=== PATIENT | female | born 1995 | race Caucasian/White ===

== ENCOUNTER 2019-02-01 14:23 | Emergency (ER) | payer MEDICAID ==
[~2019-02-01] VITALS: Ht 170.2 cm; Wt 111.6 kg
[2019-02-01 15:00] VITALS: BP 117/63
--- NOTE | 2019-02-01 15:04 | NUR ---
VSS; PT AMB TO LOBBY
--- NOTE | 2019-02-01 17:35 | NUR ---
TOLD BY ADMITTING THAT PT LWBS AT THIS TIME
== END 2019-02-01 17:35 | disposition left against medical advice (07) ==
LOC: MED 14:23
DX: M54.5 Low back pain (principal); Z53.21 Procedure and treatment not carried out due to patient leaving prior to being seen by health care provider
CPT/HCPCS: 81002; 81025

== ENCOUNTER 2019-08-26 18:06 | Emergency (ER) | payer MEDICAID ==
[~2019-08-26] VITALS: Ht 170.2 cm; Wt 112.2 kg
[2019-08-26 18:16] VITALS: BP 124/80
[2019-08-26] MEDS ORDERED: KETOROLAC 30 MG/ML VIAL IM ONE (20:10)
[2019-08-26 20:50] VITALS: BP 122/64
== END 2019-08-26 20:50 | disposition home or self-care (01) ==
LOC: MED 18:06
DX: S46.911A Strain of unspecified muscle, fascia and tendon at shoulder and upper arm level, right arm, initial encounter (principal); S46.912A Strain of unspecified muscle, fascia and tendon at shoulder and upper arm level, left arm, initial encounter; X58.XXXA Exposure to other specified factors, initial encounter; Y93.89 Activity, other specified; Y92.89 Other specified places as the place of occurrence of the external cause; Y99.8 Other external cause status
CPT/HCPCS: 81025; 96372; 99283; J1885

== ENCOUNTER 2019-10-06 18:25 | Emergency (ER) | payer MEDICAID ==
[~2019-10-06] VITALS: Ht 170.2 cm; Wt 113.4 kg
[2019-10-06 18:31] VITALS: BP 153/104
--- NOTE | 2019-10-06 18:36 | NUR ---
PT TRIAGED, SENT BACK TO LOBBY AWAITING FOR BED
--- NOTE | 2019-10-06 18:40 | NUR ---
PT AMBULATED TO BED
--- NOTE | 2019-10-06 18:44 | NUR ---
24/F C/O SORE THROAT, X2 DAYS. DENIES COUGH, N/V/D. TEMP 100.5, HR 125. DENIES MED HX, RX OR OTC. PATIENT STATES PAIN OF 10/10 AT THIS TIME. PATIENT POSITIONED FOR COMFORT; HOB ELEVATED; BEDRAILS UP X1; BED DOWN. ER MD MADE AWARE OF PT STATUS.
--- NOTE | 2019-10-06 18:49 | NUR ---
FLU & STREP SPECIMENS SENT TO LAB.
[2019-10-06] MEDS ORDERED: ACETAMINOPHEN EXTRA STRENGTH 500 MG TAB PO ONE (18:50)
[2019-10-06] MEDS ORDERED: IBUPROFEN 600 MG TAB PO ONE (18:50)
[2019-10-06] MEDS ORDERED: PENICILLIN G BENZATHINE L-A 1.2 MU/2 ML SYR IM ONE (19:10)
[2019-10-06] MEDS ORDERED: KETOROLAC 30 MG/ML VIAL IM ONE (19:10)
--- NOTE | 2019-10-06 19:21 | NUR ---
Pt report given to MOO ANDERSON. Transfer of care at this time.
--- NOTE | 2019-10-06 20:02 | NUR ---
Patient discharged with v/s stable. Written and verbal after care instructions given and explained. Patient alert, oriented and verbalized understanding of instructions. Ambulatory with steady gait. All questions addressed prior to discharge. ID band removed. Patient advised to follow up with PMD. Rx of KEFLEX, ACETAMINOPHEN, AND PRENATALS given. Patient educated on indication of medication including possible reaction and side effects. Opportunity to ask questions provided and answered.
[2019-10-06 20:03] VITALS: BP 138/98
== END 2019-10-06 20:02 | disposition home or self-care (01) ==
LOC: MED 18:25
DX: O23.40 Unspecified infection of urinary tract in pregnancy, unspecified trimester (principal); O99.513 Diseases of the respiratory system complicating pregnancy, third trimester; Z34.02 Encounter for supervision of normal first pregnancy, second trimester; J02.9 Acute pharyngitis, unspecified
CPT/HCPCS: 81002; 81025; 87081; 87804; 96372; 99283; J0561; J1885

== ENCOUNTER 2019-10-10 09:25 | Emergency (ER) | payer MEDICAID ==
[~2019-10-10] VITALS: Ht 170.2 cm; Wt 113.0 kg
[2019-10-10 09:31] VITALS: BP 124/65
--- NOTE | 2019-10-10 09:33 | NUR ---
KRUNAL GLEZ. SENT TO LOB, AWAITING BED IN ED. VSS.
--- NOTE | 2019-10-10 10:10 | NUR ---
PT TAKEN TO BED 12.
--- NOTE | 2019-10-10 10:22 | NUR ---
C/O VAGINAL SPOTTING NOTED WHEN WIPING AND SMALL AMOUNT OF HOME IN TOILET BOWL X 2 DAYS. STATES 5/10 INTERMITTENT B/L PELVIC PAIN. SEEN IN ED 4 DAYS AGO, POS HCG. WAS NOT TOLD HOW MANY WKS . LMP "AROUND 2 MONTHS AGO". HX- NONE
--- NOTE | 2019-10-10 10:35 | NUR ---
URINE ALREADY TAKEN BY LAB. HCG BLOOD WILL BE DONE.
[2019-10-10 10:40] LABS: APPEARANCE,URINE CLEAR (CLEAR); BILIRUBIN,URINE NEGATIVE (NEGATIVE); BLOOD, URINE TRACE-I (NEGATIVE); COLOR,URINE YELLOW (YELLOW); LEUKOCYTE ESTERASE ,URINE TRACE (NEGATIVE); NITRITE, URINE NEGATIVE (NEGATIVE); UGLUCOSE NEGATIVE (NEGATIVE)
[2019-10-10 10:46] LABS: BASOPHILS # (AUTO) 0.1 K/uL (0.00-0.22); EOSINOPHILS # (AUTO) 0.1 K/uL (0-0.4); HEMOGLOBIN 12.6 g/dL (12.0-16.0); LYMPHOCYTES # (AUTO) 1.9 K/uL (2.5-16.5); LYMPHOCYTES % (AUTO) 33.3 % (20.5-51.1); MEAN CORPUSCULAR HEMOGLOBIN 27 pg (27-31); MEAN CORPUSCULAR HGB CONC 32 g/dL (33-37); MEAN CORPUSCULAR VOLUME 83.3 fL (80-94); MONOCYTES # (AUTO) 0.3 K/uL (0.8-1.0); MONOCYTES % (AUTO) 5.7 % (1.7-9.3); NEUTROPHILS # (AUTO) 3.4 K/uL (1.8-7.7); PLATELET COUNT (AUTO) 328 K/uL (140-450); RED BLOOD CELL COUNT(AUTO) 4.68 MIL/uL (4.20-5.40); WHITE BLOOD COUNT (AUTO) 5.8 K/uL (4.8-10.8)
--- NOTE | 2019-10-10 11:15 | NUR ---
US TECH AT BEDSIDE
[2019-10-10 11:26] LABS: RBC,URINE 0-5 /HPF (0-5); WBC,URINE 0-5 /HPF (0-5)
[2019-10-10 13:04] VITALS: BP 120/68
--- NOTE | 2019-10-10 13:04 | NUR ---
Patient discharged with v/s stable. Written and verbal after care instructions given and explained. Patient verbalized understanding. Ambulatory with steady gait. All questions addressed prior to discharge. Advised to follow up with obgyn in 2-3 days.
== END 2019-10-10 13:04 | disposition home or self-care (01) ==
LOC: MED 09:25
DX: O20.9 Hemorrhage in early pregnancy, unspecified (principal); Z3A.01 Less than 8 weeks gestation of pregnancy
CPT/HCPCS: 36415; 76801; 81001; 84702; 85025; 86900; 86901; 99284; Q0092

== ENCOUNTER 2019-11-14 22:25 | Emergency (ER) | payer MEDICAID ==
[~2019-11-14] VITALS: Ht 170.2 cm; Wt 112.7 kg
[2019-11-14 22:55] VITALS: BP 122/76
--- NOTE | 2019-11-14 22:58 | NUR ---
to lobby a/w bed ambulatory
--- NOTE | 2019-11-14 23:57 | NUR ---
PT AMBULATED TO BED 12
--- NOTE | 2019-11-15 00:21 | NUR ---
BIB SELF C/O VAGINAL BLEEDING X 5 HOURS AGO. PT WAS RUNNING ERRANDS AND REALIZED SHE WAS BLEEDING THROUGH HER JEANS. SHE REPORTS TO BEEN HAVE SPOTTING/BLEEDING FOR 3 HOURS. PT IS NOT CURRENTLY BLEEDING. NO PAIN REPORTED. NO BURNING DURING URINATION. NO PMH NKA
[2019-11-15 00:26] LABS: APPEARANCE,URINE CLEAR (CLEAR); BILIRUBIN,URINE NEGATIVE (NEGATIVE); BLOOD, URINE 2+ (NEGATIVE); COLOR,URINE YELLOW (YELLOW); LEUKOCYTE ESTERASE ,URINE NEGATIVE (NEGATIVE); NITRITE, URINE NEGATIVE (NEGATIVE); UGLUCOSE NEGATIVE (NEGATIVE)
[2019-11-15 00:40] LABS: WBC,URINE 0-5 /HPF (0-5)
[2019-11-15 01:09] VITALS: BP 126/75
[2019-11-15 01:32] LABS: BASOPHILS # (AUTO) 0.1 K/uL (0.00-0.22); BASOPHILS % (AUTO) 1.1 % (0.0-2.0); EOSINOPHILS # (AUTO) 0.2 K/uL (0-0.4); EOSINOPHILS % (AUTO) 2.4 % (0.0-4.0); HEMATOCRIT 37.7 % (36-48); HEMOGLOBIN 12.3 g/dL (12.0-16.0); LYMPHOCYTES # (AUTO) 2.5 K/uL (2.5-16.5); LYMPHOCYTES % (AUTO) 34.8 % (20.5-51.1); MEAN CORPUSCULAR HEMOGLOBIN 27 pg (27-31); MEAN CORPUSCULAR HGB CONC 33 g/dL (33-37); MEAN CORPUSCULAR VOLUME 82.6 fL (80-94); MONOCYTES # (AUTO) 0.5 K/uL (0.8-1.0); MONOCYTES % (AUTO) 7.1 % (1.7-9.3); NEUTROPHILS % (AUTO) 54.6 % (42.2-75.2); PLATELET COUNT (AUTO) 287 K/uL (140-450); RED BLOOD CELL COUNT(AUTO) 4.57 MIL/uL (4.20-5.40); RED CELL DISTRIBUTION WIDTH 14.3 % (11.6-13.7); WHITE BLOOD COUNT (AUTO) 7.2 K/uL (4.8-10.8)
[2019-11-15 01:46] LABS: ANION GAP 13.1 (8-16); CARBON DIOXIDE 26.7 mmol/L (21-32); CREATININE 0.5 mg/dL (0.6-1.3); POTASSIUM 3.8 mmol/L (3.5-5.1)
--- NOTE | 2019-11-15 03:04 | NUR ---
Patient discharged with v/s stable. Written and verbal after care instructions given and explained. Patient verbalized understanding. Ambulatory with steady gait. All questions addressed prior to discharge. Advised to follow up with PMD.
== END 2019-11-15 03:04 | disposition home or self-care (01) ==
LOC: MED 22:25
DX: O20.8 Other hemorrhage in early pregnancy (principal); Z3A.10 10 weeks gestation of pregnancy
CPT/HCPCS: 36415; 76801; 80048; 81001; 81025; 84702; 85025; 86900; 86901; 99284; Q0092

== ENCOUNTER 2023-12-06 14:35 | Emergency (ER) | payer MEDICAID ==
[~2023-12-06] VITALS: Ht 170.2 cm; Wt 121.1 kg
[2023-12-06 14:46] VITALS: BP 134/79; PULSE 129; RESP 20; TEMP 101.3; O2SAT 98
[2023-12-06] MEDS: NACL 0.9% 1,000 ML IV ONE (15:21)
[2023-12-06] MEDS: KETOROLAC 30 MG/ML VIAL IVP ONE (15:29)
[2023-12-06] MEDS: ONDANSETRON 4 MG/2 ML VIAL IVP ONE (15:30)
[2023-12-06 15:59] LABS: FLU A ANTIGEN POSITIVE (NEGATIVE); FLU B ANTIGEN NEGATIVE (NEGATIVE)
[2023-12-06] MEDS ORDERED: PRED20TA5 PO (16:30)
[2023-12-06] MEDS ORDERED: ONDA8TAB87 PO (16:30)
[2023-12-06] MEDS ORDERED: TAM75 PO (16:30)
[2023-12-06] MEDS: MORPHINE SULFATE 4 MG/ML SYR IVP ONE (16:30)
[2023-12-06] MEDS ORDERED: IBUP-2213 PO (16:30)
[2023-12-06 17:36] VITALS: BP 125/80; PULSE 90; RESP 20; TEMP 99; O2SAT 99
== END 2023-12-06 17:36 | disposition home or self-care (01) ==
LOC: MED 14:35
DX: J11.1 Influenza due to unidentified influenza virus with other respiratory manifestations (principal); Z20.822 Contact with and (suspected) exposure to COVID-19
CPT/HCPCS: 81002; 81025; 87426; 87804; 96361; 96374; 96375; 99284; J1885; J2270; J2405; J7030

== ENCOUNTER 2024-04-26 22:32 | Emergency (ER) | payer MEDICAID ==
[~2024-04-26] VITALS: Ht 170.2 cm; Wt 117.9 kg
[~2024-04-26 22:32] MED LIST: IBUP-2213 PO; ONDA8TAB87 PO; PRED20TA5 PO; TAM75 PO
[2024-04-26 23:05] VITALS: BP 139/82; PULSE 102; RESP 18; TEMP 97.5; O2SAT 99
[2024-04-26 23:32] LABS: BASOPHILS # (AUTO) 0.2 K/uL (0.00-0.22); BASOPHILS % (AUTO) 2.3 % (0.0-2.0); EOSINOPHILS # (AUTO) 0.2 K/uL (0-0.4); EOSINOPHILS % (AUTO) 1.5 % (0.0-4.0); HEMATOCRIT 39.7 % (36-48); HEMOGLOBIN 13.2 g/dL (12.0-16.0); LYMPHOCYTES # (AUTO) 2.6 K/uL (2.5-16.5); LYMPHOCYTES % (AUTO) 24.5 % (20.5-51.1); MEAN CORPUSCULAR HEMOGLOBIN 27 pg (27-31); MEAN CORPUSCULAR HGB CONC 33 g/dL (33-37); MEAN CORPUSCULAR VOLUME 79.7 fL (80-94); MONOCYTES # (AUTO) 0.5 K/uL (0.8-1.0); MONOCYTES % (AUTO) 4.4 % (1.7-9.3); NEUTROPHILS % (AUTO) 67.3 % (42.2-75.2); PLATELET COUNT (AUTO) 304 K/uL (140-450); RED BLOOD CELL COUNT(AUTO) 4.98 MIL/uL (4.20-5.40); RED CELL DISTRIBUTION WIDTH 14.8 % (11.6-13.7); WHITE BLOOD COUNT (AUTO) 10.4 K/uL (4.8-10.8)
[2024-04-26 23:49] LABS: ANION GAP 13.3 (8-16); CALCIUM 8.7 mg/dL (8.5-10.1); CARBON DIOXIDE 28.5 mmol/L (21-32); CREATININE 0.9 mg/dL (0.6-1.3); POTASSIUM 3.8 mmol/L (3.5-5.1)
[2024-04-26 23:51] LABS: ALBUMIN 3.9 g/dL (3.4-5.0); BILIRUBIN,DIRECT 0.1 mg/dL (0.0-0.3); TOTAL BILIRUBIN 0.4 mg/dL (0.0-1.0); TOTAL PROTEIN, SERUM 8.4 g/dL (6.4-8.2)
[2024-04-27] MEDS: KETOROLAC 30 MG/ML VIAL IM ONE (02:01)
[2024-04-27] MEDS: ACETAMINOPHEN EXTRA STRENGTH 500 MG TAB PO ONE (02:02)
[2024-04-27 02:34] VITALS: BP 130/82; PULSE 100; RESP 18; TEMP 97.5
[2024-04-27 02:35] VITALS: O2SAT 99
[2024-04-27 03:04] LABS: APPEARANCE,URINE CLEAR (CLEAR); BILIRUBIN,URINE NEGATIVE (NEGATIVE); BLOOD, URINE NEGATIVE (NEGATIVE); COLOR,URINE YELLOW (YELLOW); LEUKOCYTE ESTERASE ,URINE NEGATIVE (NEGATIVE); NITRITE, URINE NEGATIVE (NEGATIVE); PROTEIN,URINE NEGATIVE (NEGATIVE); UGLUCOSE NEGATIVE (NEGATIVE); UROBILINOGEN,URINE 0.2 EU/dL (0.2 - 1)
[2024-04-27] MEDS: FAMOTIDINE 20 MG TAB PO ONE (03:20)
[2024-04-27] MEDS: DICYCLOMINE HCL LIQUID 10 MG/5 ML UDC PO ONE (03:21)
[2024-04-27] MEDS: ALUMINUM HYD/MAG/SIMETHICONE 30 ML UDC PO ONE (03:21)
== END 2024-04-27 03:21 | disposition left against medical advice (07) ==
LOC: MED 22:32
DX: R10.11 Right upper quadrant pain (principal); Z79.899 Other long term (current) drug therapy
CPT/HCPCS: 36415; 74150; 76705; 80048; 80076; 81003; 81025; 82150; 83690; 85025; 96372; 99285; J1885; Q0092